=== PATIENT | female | born 1935 | race Caucasian/White ===

== ENCOUNTER 2016-06-07 07:02 | Day surgery (SDC) | payer OTHER, MEDICARE ==
[~2016-06-07] VITALS: Ht 175.3 cm; Wt 81.2 kg
[~2016-06-07 07:02] MED LIST: AMPICILLIN TRI500 MG PO; ARTIFICIAL TEAR15 M1 BOTH EYES; ARTIFICIAL TEAR15 M3 BOTH EYES; ASPIR-LOW81 MG PO; ASPIRIN81 M2 PO; ATACAND16 MG PO; ATIVAN0.5 MG PO; ATORVASTATIN CA20 MG PO; ATORVASTATIN CA40 MG PO; BENTYL10 MG PO; CALCIUM ACETAT667 MG PO; CALMOSEPTINE O120 GM TP; CANDESARTAN CIL16 MG PO; CATAPRES0.1 MG PO; CEFTIN125 MG/5 M PO; CELEXA10 MG PO; CETAPHIL CREAM454 GM TP; CITALOPRAM HBR10 MG PO; CLOPIDOGREL75 MG PO; COLACE100 MG PO; COUGH SYRU100 MG/5 M PO; COUMADIN5 MG PO; COUMADIN6 MG PO; COUMADIN7.5 MG PO; DIALYVITE TABL1 EACH PO; DOCUSATE SODIU100 MG PO; DULCOLAX10 MG PR; ENDOCET 5-3251 EACH PO; EPOGEN,PRO3000 UNITS IV; EPOGEN,PRO4000 UNITS IV; FLEET ENEMA-AD118 ML PR; FLORASTOR250 MG PO; FLUCONAZOLE200 MG PO; FOLGARD RX1 TABLET PO; GABAPENTIN100 MG PO; GARAMYCIN5 M1 BOTH EYES; GLUCAGON1 MG IM; GLUCOSE GEL15 GM PO; GUAIFENESIN DA473 ML PO; HUMALOG100 UNIT/2 SC; JANTOVEN6 MG PO; LANTUS 10100 UNITS/ SC; LANTUS 3 M100 UNITS1 SC; LEVEMIR FL100 UNITS/ SC; LOPRESSOR HC1 TABLE2 PO; LOPRESSOR25 MG PO; LOSARTAN POTAS100 MG PO; METOPROLOL TAR100 MG PO; METOPROLOL TART25 MG PO; MIRALAX17 GM PO; NEPHRO-VITE RX1 EACH PO; NEPRO CARB STE237 ML PO; NORCO 5/3251 TABLET PO; NOVOLOG PE100 UNITS/ SC; PLAVIX75 MG PO; PRAVASTATIN SOD40 MG PO; PROTONIX40 MG PO; TRAMADOL HCL50 MG PO; TYLENOL REGULA325 MG PO; VANCOMYCIN IV; ZOFRAN4 MG PO; pletal PO
[2016-06-07 08:25] LABS: POINT-OF-CARE METER ID UU13113696
[2016-06-07 09:35] LABS: METH RESISTANT S AUREUS PCR NEGATIVE (NEGATIVE)
[2016-06-07 09:40] LABS: PROBE CHECK PASS; SPECIMEN PROCESSING CONTROL PASS
== END 2016-06-07 10:30 | disposition home or self-care (01) ==
LOC: CATH 07:02
PROVIDERS: Surgery
DX: T82.898A Other specified complication of vascular prosthetic devices, implants and grafts, initial encounter (principal); Y83.2 Surgical operation with anastomosis, bypass or graft as the cause of abnormal reaction of the patient, or of later complication, without mention of misadventure at the time of the procedure; Z99.2 Dependence on renal dialysis; I12.0 Hypertensive chronic kidney disease with stage 5 chronic kidney disease or end stage renal disease; E11.22 Type 2 diabetes mellitus with diabetic chronic kidney disease; N18.6 End stage renal disease
CPT/HCPCS: 82948; 87641; C1725; C1769; C1894; J1644; J2250; J3010

== ENCOUNTER 2016-11-22 14:18 | Day surgery (SDC) | payer OTHER, MEDICARE ==
[~2016-11-22] VITALS: Ht 129.5 cm; Wt 84.0 kg
[~2016-11-22 14:18] MED LIST changes: +ANODYNE LPT 2.1 EACH TP; +ANTI-GAS600 UNIT PO; +DULCOLAX5 MG PO; +DUONEB 2.5-0.5 M3 ML AEROSOL; +GLUTOSE 1537.5 GM PO; +MYLICON,MYLANTA80 MG PO; +NITROSTAT0.4 MG SL; +PRAVACHOL20 MG PO
[2016-11-22 15:12] LABS: HEMATOCRIT 28.3 % (36.0-46.0); MCH 31.1 PG (29.0-34.0); MCHC 31.1 G/DL (30.0-36.0); MEAN PLAT.VOLUME 9.4 uM^3 (9.5-12.4); PLATELET COUNT 145 K/uL (156-360); RBC DIS.WIDTH-CV 15.2 % (11.8-14.6); RBC DIS.WIDTH-SD 55.9 % (39-53); RED BLOOD COUNT 2.83 M/uL (3.80-5.20); WHITE BLOOD COUNT 4.1 K/uL (4.1-10.2)
[2016-11-22 15:33] LABS: ANION GAP 8 MEQ/L (2-14); CHLORIDE 99 MEQ/L (99-109); POTASSIUM 4.2 MEQ/L (3.7-5.4); SAMPLE HEMOLYSIS CHECK 0; SAMPLE ICTERIC CHECK 0; SAMPLE LIPEMIA CHECK 0; SODIUM 140 MEQ/L (136-147)
[2016-11-22 15:39] LABS: GFR ESTIMATE (CALCULATED) 14 mL/min/; GLUCOSE 122 mg/dL (70-99); UREA NITROGEN (BUN) 18 mg/dL (9-23)
[2016-11-22 15:47] LABS: POINT-OF-CARE METER ID UU13113694
[2016-11-22 15:50] VITALS: BP 169/57
[2016-11-22 16:51] LABS: METH RESISTANT S AUREUS PCR NEGATIVE (NEGATIVE)
[2016-11-22 16:58] LABS: PROBE CHECK PASS; SPECIMEN PROCESSING CONTROL PASS
[2016-11-22 17:45] LABS: POINT-OF-CARE METER ID UU13113675
[2016-11-22 17:50] VITALS: BP 132/60
[2016-11-22 18:50] VITALS: BP 177/67
== END 2016-11-22 18:50 ==
LOC: SDC 14:18
PROVIDERS: Surgery
DX: T82.41XA Breakdown (mechanical) of vascular dialysis catheter, initial encounter (principal); Z99.2 Dependence on renal dialysis; N18.5 Chronic kidney disease, stage 5; E11.65 Type 2 diabetes mellitus with hyperglycemia; E11.22 Type 2 diabetes mellitus with diabetic chronic kidney disease; I12.0 Hypertensive chronic kidney disease with stage 5 chronic kidney disease or end stage renal disease; I48.2 Chronic atrial fibrillation; D63.1 Anemia in chronic kidney disease; K21.9 Gastro-esophageal reflux disease without esophagitis; E78.5 Hyperlipidemia, unspecified; I73.9 Peripheral vascular disease, unspecified; Z79.01 Long term (current) use of anticoagulants; Z79.02 Long term (current) use of antithrombotics/antiplatelets
CPT/HCPCS: 80048; 82948; 85027; 87641; 93005; C1725; C1757; C1769; C1894; C2628; J1644; J3010

== ENCOUNTER 2017-05-07 07:19 | Day surgery (SDC) | payer OTHER, MEDICARE ==
[~2017-05-07 07:19] MED LIST changes: +BENADRYL25 MG PO; +CALMOSEPTINE O3.5 GM TP; +REFRESH TEARS15 ML BOTH EYES; +TUMS500 MG PO
== END 2017-05-07 09:41 ==
LOC: CATH 07:19
PROVIDERS: Surgery
DX: T82.858A Stenosis of other vascular prosthetic devices, implants and grafts, initial encounter (principal); I12.0 Hypertensive chronic kidney disease with stage 5 chronic kidney disease or end stage renal disease; E11.22 Type 2 diabetes mellitus with diabetic chronic kidney disease; N18.6 End stage renal disease; Z99.2 Dependence on renal dialysis; D64.9 Anemia, unspecified; I48.91 Unspecified atrial fibrillation; K21.9 Gastro-esophageal reflux disease without esophagitis; E78.00 Pure hypercholesterolemia, unspecified; Z93.3 Colostomy status; Z89.512 Acquired absence of left leg below knee; Z79.01 Long term (current) use of anticoagulants; Z79.02 Long term (current) use of antithrombotics/antiplatelets; Z79.4 Long term (current) use of insulin
CPT/HCPCS: 82948; 87641; C1725; C1769; C1894; J1644; J2250; J2405; J3010

== ENCOUNTER 2017-07-24 09:28 | Day surgery (SDC) | payer OTHER, MEDICARE ==
[~2017-07-24] VITALS: Ht 175.3 cm; Wt 83.0 kg
== END 2017-07-24 12:21 | disposition home or self-care (01) ==
LOC: CATH 09:28
PROVIDERS: Surgery
DX: T82.858A Stenosis of other vascular prosthetic devices, implants and grafts, initial encounter (principal); Y83.2 Surgical operation with anastomosis, bypass or graft as the cause of abnormal reaction of the patient, or of later complication, without mention of misadventure at the time of the procedure; I12.0 Hypertensive chronic kidney disease with stage 5 chronic kidney disease or end stage renal disease; E11.22 Type 2 diabetes mellitus with diabetic chronic kidney disease; N18.6 End stage renal disease; Z99.2 Dependence on renal dialysis; K21.9 Gastro-esophageal reflux disease without esophagitis; I48.91 Unspecified atrial fibrillation; D64.9 Anemia, unspecified; E78.00 Pure hypercholesterolemia, unspecified; Z79.4 Long term (current) use of insulin; Z79.01 Long term (current) use of anticoagulants
CPT/HCPCS: 82948; 87641; C1725; C1769; C1894; J1200; J1644; J2250

== ENCOUNTER 2017-12-03 06:52 | Day surgery (SDC) | payer OTHER, MEDICARE ==
[~2017-12-03] VITALS: Ht 129.5 cm; Wt 82.0 kg
[~2017-12-03 06:52] MED LIST changes: +WARFARIN SODIUM4 MG PO
== END 2017-12-03 11:20 | disposition home or self-care (01) ==
LOC: CATH 06:52
PROC: 027V3ZZ Dilation of Superior Vena Cava, Percutaneous Approach (ICD-10-PCS; principal; 2017-12-03)
PROC: B51W1ZZ Fluoroscopy of Dialysis Shunt/Fistula using Low Osmolar Contrast (ICD-10-PCS; principal; 2017-12-03)
DX: T82.858A Stenosis of other vascular prosthetic devices, implants and grafts, initial encounter (principal); Y83.2 Surgical operation with anastomosis, bypass or graft as the cause of abnormal reaction of the patient, or of later complication, without mention of misadventure at the time of the procedure; I12.0 Hypertensive chronic kidney disease with stage 5 chronic kidney disease or end stage renal disease; E11.22 Type 2 diabetes mellitus with diabetic chronic kidney disease; N18.6 End stage renal disease; E78.5 Hyperlipidemia, unspecified; E11.51 Type 2 diabetes mellitus with diabetic peripheral angiopathy without gangrene; K21.9 Gastro-esophageal reflux disease without esophagitis; D63.1 Anemia in chronic kidney disease; I48.91 Unspecified atrial fibrillation; Z83.3 Family history of diabetes mellitus; Z82.49 Family history of ischemic heart disease and other diseases of the circulatory system; Z93.3 Colostomy status; Z79.01 Long term (current) use of anticoagulants
CPT/HCPCS: 87641; C1725; C1769; C1887; C1894; J1644; J2250; J3010